=== PATIENT | male | born 1985 | race Caucasian/White ===

== ENCOUNTER 2017-01-29 14:03 | Emergency (ER) | payer SELFPAY ==
[~2017-01-29] VITALS: Ht 167.6 cm; Wt 72.6 kg
[2017-01-29 14:05] VITALS: BP 122/76
[2017-01-29] MEDS ORDERED: NACL 0.9% 1,000 ML IV SCH (14:10)
[2017-01-29] MEDS ORDERED: ONDANSETRON 4 MG/2 ML VIAL IVP ONE (14:10)
[2017-01-29] MEDS ORDERED: FAMOTIDINE 20 MG/2 ML VIAL IVP ONE (14:10)
--- NOTE | 2017-01-29 14:33 | NUR ---
Blood drawn by [facility] in [place].
[2017-01-29 14:35] LABS: APPEARANCE,URINE CLEAR (CLEAR); BILIRUBIN,URINE NEGATIVE (NEGATIVE); BLOOD, URINE NEGATIVE (NEGATIVE); COLOR,URINE YELLOW (YELLOW); LEUKOCYTE ESTERASE ,URINE NEGATIVE (NEGATIVE); NITRITE, URINE NEGATIVE (NEGATIVE); PH,URINE 7.5 (5.0-9.0); PROTEIN,URINE NEGATIVE (NEGATIVE); UGLUCOSE NEGATIVE (NEGATIVE); UROBILINOGEN,URINE 0.2 EU/dL (0.2 - 1)
[2017-01-29 14:42] LABS: BASOPHILS # (AUTO) 0.1 K/uL (0.00-0.22); BASOPHILS % (AUTO) 2.2 % (0.0-2.0); EOSINOPHILS # (AUTO) 0.2 K/uL (0-0.4); EOSINOPHILS % (AUTO) 3.4 % (0.0-4.0); HEMATOCRIT 37.8 % (36-52); LYMPHOCYTES # (AUTO) 1.4 K/uL (2.0-11.5); LYMPHOCYTES % (AUTO) 21.3 % (20.5-51.1); MEAN CORPUSCULAR HEMOGLOBIN 29 pg (27-31); MEAN CORPUSCULAR HGB CONC 32 g/dL (33-37); MEAN CORPUSCULAR VOLUME 91 fL (80-94); MONOCYTES # (AUTO) 0.4 K/uL (0.8-1.0); MONOCYTES % (AUTO) 6.2 % (1.7-9.3); NEUTROPHILS # (AUTO) 4.4 K/uL (1.8-7.7); NEUTROPHILS % (AUTO) 66.9 % (42.2-75.2); PLATELET COUNT (AUTO) 222 K/uL (140-450); RED BLOOD CELL COUNT(AUTO) 4.16 MIL/uL (4.20-6.10); RED CELL DISTRIBUTION WIDTH 12.6 % (11.6-13.7); WHITE BLOOD COUNT (AUTO) 6.5 K/uL (4.8-10.8)
[2017-01-29 14:59] LABS: ANION GAP 11.3 (8-16); CALCIUM 8.1 mg/dL (8.5-10.1); CARBON DIOXIDE 27.3 mmol/L (21-32); CREATININE 0.6 mg/dL (0.7-1.3); POTASSIUM 4.6 mmol/L (3.5-5.1)
[2017-01-29 15:04] LABS: ALBUMIN 3.7 g/dL (3.4-5.0); TOTAL BILIRUBIN 0.8 mg/dL (0.0-1.0); TOTAL PROTEIN, SERUM 7.1 g/dL (6.4-8.2)
[2017-01-29 15:09] LABS: PROTHROMBIN TIME 10.1 secs (10.8-13.4)
--- NOTE | 2017-01-29 16:09 | NUR ---
PATIENT PRESENTS TO ED WITH C/O INTERMITTENT EPIGASTRIC PAIN X 2-3 MONTHS WITH NAUSEA AND DIARRHEA TODAY ;BLACK STOOL X YESTERDAY AND TODAY;ADMITS TO ETOH DAILY > 6 PACK /DAILY . SKIN IS PINK/WARM/DRY; AAOX4 WITH EVEN AND STEADY GAIT; LUNGS CLEAR BL; HR EVEN AND REGULAR; PT DENIES ANY FEVER, CP, SOB, OR COUGH AT THIS TIME; PATIENT STATES PAIN OF 3/10 AT THIS TIME; PATIENT POSITIONED FOR COMFORT; HOB ELEVATED; BEDRAILS UP X2; BED DOWN.
--- NOTE | 2017-01-29 16:37 | NUR ---
PT RESTING ON BED;NO ACUTE DISTRESS NOTED;ALL MONITORS IN [PLACED;WILL CONTINUE TO MONITOR PT.
--- NOTE | 2017-01-29 16:39 | NUR ---
[employer] INTERVIEWING PT;
--- NOTE | 2017-01-29 16:50 | NUR ---
1 L OF NS WAS COSUMED AT AROUND [id number]
[2017-01-29 16:57] VITALS: BP 116/74
--- NOTE | 2017-01-29 16:57 | NUR ---
Patient discharged with v/s stable. Written and verbal after care instructions given and explained. Patient alert, oriented and verbalized understanding of instructions. Ambulatory with steady gait. All questions addressed prior to discharge. ID band removed. Patient advised to follow up with PMD. Rx of BENTYL AND RANITIDINE given. Patient educated on indication of medication including possible reaction and side effects. Opportunity to ask questions provided and answered.
== END 2017-01-29 16:57 | disposition home or self-care (01) ==
LOC: MED 14:03
DX: K21.9 Gastro-esophageal reflux disease without esophagitis (principal)
CPT/HCPCS: 36415; 71010; 80053; 81003; 82150; 82553; 83690; 83880; 84484; 85025; 85610; 85730; 93005; 96361; 96374; 96375; 99285; J2405; J3490; J7030

== ENCOUNTER 2017-07-27 08:02 | Emergency (ER) | payer OTHER ==
[~2017-07-27] VITALS: Ht 165.1 cm; Wt 71.9 kg
[2017-07-27 08:07] VITALS: BP 110/73
--- NOTE | 2017-07-27 08:11 | NUR ---
PT AMBULATED TO BED 2.
--- NOTE | 2017-07-27 08:17 | NUR ---
ER MD DR. SHELTON EVALUATING PT AT BEDSIDE.
--- NOTE | 2017-07-27 08:17 | NUR ---
32M BIB SELF C/O COUGH, SORE THROAT, BODY ACHES, HEADACHE, SORE THROAT X LAST NIGHT; PT C/O BODY ACHES, NON-RADIATING, ACHING, 9/10 WITH NAUSEA, BUT STATES NO VOMITING OR DIRRHEA AT THIS TIME; ABDOMEN SOFT, NON-TENDER, ACTIVE BOWEL SOUNDS X 4 QUADRANTS; PT C/O NON-PRODUCTIVE COUGH, BL LUNG SOUNDS CLEAR, RR EVEN/UNLABORED, SKIN IS WARM/DRY/INTACT, STEADY GAIT; PT AA&OX4, PERRLA; PT RESTING IN BED WITH HOB ELEVATED AND IN LOWEST POSITION; POSITIONED FOR COMFORT; ER MD MADE AWARE OF STATUS. WILL CONTINUE TO MONITOR.
[2017-07-27] MEDS ORDERED: KETOROLAC 30 MG/ML VIAL IM ONE (08:20)
[2017-07-27] MEDS ORDERED: ACETAMIN/CODEINE 120/12MG-5ML 5 ML UDC PO ONE (08:20)
--- NOTE | 2017-07-27 08:31 | NUR ---
TYLENOL WITH CODEINE ORDERED PER ER MD DR. AARON NOT AVAILABLE IN [facility] AT THIS TIME; CALLED PHARMACY, WILL BRING MEDICATION TO ER.
[2017-07-27 09:37] VITALS: BP 108/70
--- NOTE | 2017-07-27 09:37 | NUR ---
Patient discharged with v/s stable. Written and verbal after care instructions given and explained. Patient alert, oriented and verbalized understanding of instructions. Ambulatory with steady gait. All questions addressed prior to discharge. ID band removed. Patient advised to follow up with PMD. Rx of NAPROSYN 500MG TAB, TAMIFLU 75MG CAP AND GUAIATUSSIN AC 100MG-10MG/5ML given. Patient educated on indication of medication including possible reaction and side effects. Opportunity to ask questions provided and answered.
== END 2017-07-27 09:37 | disposition home or self-care (01) ==
LOC: MED 08:02
DX: J06.9 Acute upper respiratory infection, unspecified (principal)
CPT/HCPCS: 36415; 87804; 96372; 99284; J1885